=== PATIENT | male | born 1980 | race Caucasian/White ===

== ENCOUNTER 2018-05-19 03:54 | Emergency (ER) | payer OTHER ==
[~2018-05-19] VITALS: Ht 175.3 cm; Wt 79.4 kg
[~2018-05-19 03:54] MED LIST: CHANTIX0.5 MG; FLEXERIL PO; HYDROCODON-ACE1 EAC5; HYDROCODON-ACE1 EAC5 PO; HYDROCODONE; KEFLEX500 MG PO; NORCO 5-325 TA1 EACH PO; RIZATRIPTAN10 MG; XANAX 0.5 MG0.5 MG PO; ZOFRAN ODT4 MG PO; [UNRECOGNIZED DRUG - REMARK]
[2018-05-19] MEDS ORDERED: CYMBALTA60 MG (04:11)
[2018-05-19] MEDS ORDERED: BACTRIM DS TAB1 EACH PO (05:57)
[2018-05-19] MEDS ORDERED: HYDROCODON-ACE1 EAC7 PO (05:57)
[2018-05-19 06:15] VITALS: BP 138/90
[2018-05-20] MEDS ORDERED: NEURONTIN 300300 M1 PO (10:27)
[2018-05-20] MEDS ORDERED: ACETAMINOPHEN-1 EAC1 PO (10:51)
[2018-05-20] MEDS ORDERED: NABUMETONE 750750 M1 PO (10:51)
== END 2018-05-19 06:16 | disposition home or self-care (01) ==
LOC: M.ERS 03:54
DX: S80.211A Abrasion, right knee, initial encounter (principal); S80.812A Abrasion, left lower leg, initial encounter; S20.362A Insect bite (nonvenomous) of left front wall of thorax, initial encounter; M25.551 Pain in right hip; F17.210 Nicotine dependence, cigarettes, uncomplicated; F32.9 Major depressive disorder, single episode, unspecified; W01.0XXA Fall on same level from slipping, tripping and stumbling without subsequent striking against object, initial encounter; Y93.89 Activity, other specified; Y92.89 Other specified places as the place of occurrence of the external cause; Y99.8 Other external cause status

== ENCOUNTER 2018-05-20 10:18 | Emergency (ER) | payer OTHER ==
[~2018-05-20] VITALS: Ht 175.3 cm; Wt 81.7 kg
[~2018-05-20 10:18] MED LIST changes: +BACTRIM DS TAB1 EACH PO; +CYMBALTA60 MG; +HYDROCODON-ACE1 EAC7 PO
[2018-05-20] MEDS ORDERED: NEURONTIN 300300 M1 PO (10:27)
[2018-05-20] MEDS ORDERED: ACETAMINOPHEN-1 EAC1 PO (10:51)
[2018-05-20] MEDS ORDERED: NABUMETONE 750750 M1 PO (10:51)
[2018-05-20 11:06] VITALS: BP 108/65
== END 2018-05-20 11:06 | disposition home or self-care (01) ==
LOC: M.ERS 10:18
DX: S80.01XA Contusion of right knee, initial encounter (principal); S70.01XA Contusion of right hip, initial encounter; F17.210 Nicotine dependence, cigarettes, uncomplicated; X58.XXXA Exposure to other specified factors, initial encounter; Y93.9 Activity, unspecified; Y92.89 Other specified places as the place of occurrence of the external cause; Y99.8 Other external cause status

== ENCOUNTER 2018-07-06 10:43 | Emergency (ER) | payer OTHER ==
[~2018-07-06] VITALS: Ht 175.3 cm; Wt 79.4 kg
[~2018-07-06 10:43] MED LIST changes: +ACETAMINOPHEN-1 EAC1 PO; +NABUMETONE 750750 M1 PO; +NEURONTIN 300300 M1 PO
[2018-07-06] MEDS ORDERED: PROMETHAZINE V473 ML PO (11:22)
[2018-07-06] MEDS ORDERED: ZPAK PO (11:22)
[2018-07-06] MEDS ORDERED: TESSALON PERLE100 MG PO (11:22)
[2018-07-06] MEDS ORDERED: MEDROLDOSEPACK PO (11:22)
[2018-07-06 11:33] VITALS: BP 142/89
[2018-07-06 11:51] LABS: INFLUENZA A ANTIGEN None Detected (None Detect); INFLUENZA B ANTIGEN None Detected (None Detect)
== END 2018-07-06 11:33 | disposition home or self-care (01) ==
LOC: M.ERS 10:43
PROVIDERS: Physician Assistant
DX: J20.9 Acute bronchitis, unspecified (principal); H92.09 Otalgia, unspecified ear; F32.9 Major depressive disorder, single episode, unspecified; F17.210 Nicotine dependence, cigarettes, uncomplicated